=== PATIENT | male | born 1995 | race Caucasian/White ===

== ENCOUNTER 2022-09-30 12:34 | Emergency (ER) | payer MEDICAID ==
[~2022-09-30] VITALS: Ht 167.6 cm; Wt 60.3 kg
[2022-09-30 12:43] VITALS: BP 112/66; TEMP 98.5; O2SAT 100
[2022-09-30] MEDS ORDERED: IBUP-1955 PO (15:00)
== END 2022-09-30 15:18 | disposition home or self-care (01) ==
LOC: ER 12:41
DX: M79.652 Pain in left thigh (principal)
CPT/HCPCS: 73552